=== PATIENT | male | born 1960 | race Caucasian/White ===

== ENCOUNTER 2019-05-18 11:54 | Emergency (ER) | payer MEDICAID ==
[~2019-05-18] VITALS: Ht 172.7 cm; Wt 81.7 kg
[~2019-05-18 11:54] MED LIST: ALBU90OI INH; CARB200 PO; CEPH500 PO; CIPR500 PO; Cleocin HCl300 MG PO; DIPH50 PO; DOXE10 PO; FLUSAL2505 INH; Golytely Packe1 EACH PO; HEMOTC PR; HYDCHL25 PO; HYDR1TAB94 PO; IBUP600 PO; ILOTYCIN1 GM; Keflex500 MG PO; LISHYD2025 PO; LISI20 PO; METPRE4DP PO; METR250 PO; NITR.4SL SL; Norco 10-325 T1 EACH PO; Norco 5-325 Ta1 EACH PO; Pepcid40 MG PO; TRAM50 PO; VARE1 PO; ZESTORETIC 20-121 EA PO; ZESTRIL40 MG PO; [UNRECOGNIZED DRUG - OTHER]
== END 2019-05-18 13:47 | disposition home or self-care (01) ==
LOC: ER 11:54
DX: M72.2 Plantar fascial fibromatosis (principal); J44.9 Chronic obstructive pulmonary disease, unspecified; I10 Essential (primary) hypertension; F17.200 Nicotine dependence, unspecified, uncomplicated; K74.60 Unspecified cirrhosis of liver; Z88.0 Allergy status to penicillin
CPT/HCPCS: 73630; 99283-25

== ENCOUNTER 2019-07-05 09:16 | Emergency (ER) | payer OTHER ==
[~2019-07-05] VITALS: Ht 172.7 cm; Wt 86.2 kg
[2019-07-05] MEDS ORDERED: IRBESARTAN300 MG PO (09:33)
[2019-07-05] MEDS ORDERED: AMLODIPINE BESY10 MG (09:33)
== END 2019-07-05 10:24 | disposition home or self-care (01) ==
LOC: ER 09:16
DX: R04.0 Epistaxis (principal); I10 Essential (primary) hypertension; F17.210 Nicotine dependence, cigarettes, uncomplicated; Z79.899 Other long term (current) drug therapy
CPT/HCPCS: 30901; 99283-25

== ENCOUNTER 2019-07-12 14:53 | Emergency (ER) | payer OTHER ==
[~2019-07-12] VITALS: Ht 172.7 cm; Wt 88.5 kg
[~2019-07-12 14:53] MED LIST changes: +AMLODIPINE BESY10 MG; +IRBESARTAN300 MG PO
[2019-07-12] MEDS ORDERED: ANORO ELLIPTA1 EACH INH (15:02)
[2019-07-12] MEDS ORDERED: OMEPRAZOLE MAGN20 M1 PO (15:02)
[2019-07-12] MEDS ORDERED: Ventolin/Prove6.7 GM INH (15:02)
[2019-07-12] MEDS ORDERED: CEPH500 PO (15:04)
== END 2019-07-12 15:08 | disposition home or self-care (01) ==
LOC: ER 14:53
DX: L03.011 Cellulitis of right finger (principal); I10 Essential (primary) hypertension; F17.210 Nicotine dependence, cigarettes, uncomplicated; Z88.0 Allergy status to penicillin; Z79.899 Other long term (current) drug therapy
CPT/HCPCS: 99283

== ENCOUNTER → 2019-08-01 | Outpatient (CLI) | payer OTHER ==
[~2019-08-01] MED LIST changes: +ANORO ELLIPTA1 EACH INH; +OMEPRAZOLE MAGN20 M1 PO; +Ventolin/Prove6.7 GM INH
[2019-08-03 14:23] LABS: Stool Occult Bld Immuno 1 Negative (NEGATIVE)
== END | disposition home or self-care (01) ==
LOC: LAB 14:08 → LAB SHORT 14:08 → LAB FUT 06-11 13:30
PROVIDERS: Physician Assistant
DX: D64.9 Anemia, unspecified (principal)
CPT/HCPCS: G0328

== ENCOUNTER 2020-03-11 11:42 | Emergency (ER) | payer OTHER ==
[~2020-03-11] VITALS: Ht 172.7 cm; Wt 88.5 kg
[~2020-03-11 11:42] MED LIST changes: +AMLODIPINE BESY10 MG PO; +Avapro300 MG PO; +CHLO25B PO; +OMEP20ER PO; +Vibramycin100 MG PO; +ZESTORETIC 20-1 EACH PO
[2020-03-11] MEDS ORDERED: Cephalexin500 M1 PO (12:11)
== END 2020-03-11 12:17 | disposition home or self-care (01) ==
LOC: ER 11:42
DX: L03.115 Cellulitis of right lower limb (principal); I10 Essential (primary) hypertension; J44.9 Chronic obstructive pulmonary disease, unspecified; K74.60 Unspecified cirrhosis of liver; F17.210 Nicotine dependence, cigarettes, uncomplicated
CPT/HCPCS: 99283

== ENCOUNTER 2020-03-13 10:33 | Inpatient (IN) | payer OTHER ==
[~2020-03-13] VITALS: Ht 172.7 cm; Wt 88.5 kg
[~2020-03-13 10:33] MED LIST changes: +Cephalexin500 M1 PO
[2020-03-13 11:38] LABS: BASOPHILS ABSOLUTE AUTO 0.02 K/mm3 (0.00-0.23); BASOPHILS PERCENT AUTO 0 % (0-2); EOSINOPHILS ABSOLUTE AUTO 0.06 K/mm3 (0.00-0.68); EOSINOPHILS PERCENT AUTO 1 % (0-6); Hematocrit 31.5 % (37.0-53.0); Hemoglobin 10.2 g/dL (13.5-17.5); IMMATURE GRAN ABSOLUTE AUTO 0.04 K/mm3 (0.00-0.10); IMMATURE GRAN PERCENT AUTO 1 % (0-1); LYMPHOCYTES ABSOLUTE AUTO 0.52 K/mm3 (0.84-5.20); LYMPHOCYTES PERCENT AUTO 8 % (21-46); MONOCYTES PERCENT AUTO 11 % (4-13); Mean Corpuscular HGB 27.5 pg (26.0-34.0); Mean Corpuscular HGB Conc 32.4 g/dL (31.5-36.5); Mean Corpuscular Volume 85 fL (80-100); NEUTROPHILS ABSOLUTE AUTO 4.88 K/mm3 (1.96-9.15); NEUTROPHILS PERCENT AUTO 78 % (41-73); NRBC ABSOLUTE 0.02 K/mm3 (0.00-0.02); NRBC Auto 0.3 /100 WBC (0.0-0.2); Platelet Count 59 K/mm3 (150-400); RDW Coefficient Variation 17.3 % (11.7-14.2); RDW Standard Deviation 53.9 fL (35.1-46.3); Red Blood Cell Count 3.71 M/mm3 (4.30-5.90); White Blood Cell Count 6.22 K/mm3 (4.00-11.30)
[2020-03-13 11:49] LABS: Mean Platelet Volume 11.3 fL (9.1-12.4)
[2020-03-13 11:56] LABS: Albumin, Blood 2.5 g/dL (3.4-5.0); Albumin/Globulin Ratio 0.6 (0.8-1.8); Bilirubin, Total 0.8 mg/dL (0.1-1.0); Calcium, Blood 7.9 mg/dL (8.5-10.1); Creatinine, Blood 4.1 mg/dL (0.60-1.20); Globulin, Blood 4.5 g/dL (2.2-4.0); Potassium, Blood 3.1 mmol/L (3.5-5.5)
[2020-03-13 12:44] LABS: Source, Urine Clean Catch
[2020-03-13 12:56] LABS: Appearance, Urine Clear (Clear); Bilirubin, Urine Neg (Neg); Blood, Urine 5+ (Neg); Color, Urine Yellow (P-Yellow); Glucose Qualitative, Urine Neg (Neg); Ketones, Urine Neg (Neg); Leukocyte Esterase, Urine 1+ (Neg); Nitrite, Urine Neg (Neg); Protein, Urine 1+ (Neg); Specific Gravity, Urine 1.015 (1.003-1.022); Urobilinogen, Urine 1+ (Normal)
[2020-03-13] MEDS ORDERED: Ventolin/Prove6.7 GM INH (12:59)
[2020-03-13] MEDS ORDERED: ONDA4 PO (12:59)
[2020-03-13] MEDS ORDERED: TRELEGY ELLIPT1 EACH INH (12:59)
[2020-03-13] MEDS ORDERED: CHLO25B PO (13:00)
[2020-03-13] MEDS ORDERED: PRAZ2 PO (13:00)
[2020-03-13] MEDS ORDERED: DOXE50 PO (13:00)
[2020-03-13] MEDS ORDERED: Nadolol20 MG PO (13:01)
[2020-03-13] MEDS ORDERED: STEGLATRO5 MG PO (13:01)
[2020-03-13] MEDS ORDERED: OMEPRAZOLE MAGN20 M1 PO (13:01)
[2020-03-13 13:02] LABS: Red Blood Cells, Urine TNTC /hpf (0-2)
[2020-03-13 13:03] LABS: Bacteria Few /hpf; Granular Casts 0-2 /lpf (0); Renal Epithelial Rare /hpf (0-Rare); Squamous Epithelial Cells Rare /hpf (Few)
[2020-03-13 13:59] LABS: D-Dimer, Quantitative 3.56 mg/L FEU (0.00-0.52); International Normalized Ratio 1.17; Prothrombin Time Results 12.4 Sec (9.7-11.5)
[2020-03-13 16:33] LABS: U Amphetamine Screen Not Detected; U Barbituate Screen Not Detected; U Benzodiazapine Screen Not Detected; U Buprenorphine Screen Not Detected; U Cannabinoids Screen Not Detected; U Cocaine Screen Not Detected; U Methadone Screen Not Detected; U Methamphetamine Screen Not Detected; U Opiates Screen Not Detected; U Oxycodone Screen Not Detected; U Phencyclidine Screen Not Detected; U Propoxyphene Screen Not Detected
[2020-03-13] MEDS ORDERED: CEPH500 PO (17:49)
--- NOTE | 2020-03-13 23:28 | NUR ---
1999 PT RESTING COMFORTABLY IN BED; THIS NURSE PLACED TWO PILLOWS AND ELEVATED RLE; RLE CALF SWOLLEN AND TENDER TO TOUCH WITH REDNESS NOTED IN CALF REGION; HAPPY AND COOPERATIVE; PT VOICED HE NOT HAD ANY ETOH 11 MONTHS AND CURRENTLY WORKS AND RESIDES AT THE [address]
--- NOTE | 2020-03-14 03:24 | NUR ---
SHIFT SUMMARY: 59 Y/O MALE RESTED COMFORTABLY IN BED ALL SHIFT WITH RLE ELEVATED TWO PILLOWS; PTS RLE REDDENED LOWER CALF ON POSTERIOR ASPECT WITH SKIN TIGHT AROUND ENTIRE CIRCUMFERENCE; PT C/O RLE PAIN RATED 7/10 WITH PERCOCET X 1 GIVEN WITH RELIEF FELT; DENIES NAUSEA; ALERT AND ORIENTED X 4; BED LOW POSITION WITH CALL LIGHT AT SIDE.
[2020-03-14 05:10] LABS: Hematocrit 27.6 % (37.0-53.0); Hemoglobin 8.9 g/dL (13.5-17.5); Mean Corpuscular HGB 27.9 pg (26.0-34.0); Mean Corpuscular HGB Conc 32.2 g/dL (31.5-36.5); Mean Corpuscular Volume 87 fL (80-100); Mean Platelet Volume 10.8 fL (9.1-12.4); Platelet Count 52 K/mm3 (150-400); RDW Coefficient Variation 17.4 % (11.7-14.2); RDW Standard Deviation 55.8 fL (35.1-46.3); Red Blood Cell Count 3.19 M/mm3 (4.30-5.90); White Blood Cell Count 3.98 K/mm3 (4.00-11.30)
[2020-03-14 05:35] LABS: Albumin, Blood 2.2 g/dL (3.4-5.0); Anion Gap 8 mmol/L (6-16); Blood Urea Nitrogen 64 mg/dL (8-24); Bun/Creatinine Ratio 18.2 (12.0-20.0); CO2, Blood 22 mmol/L (21-32); Calcium, Blood 7.7 mg/dL (8.5-10.1); Chloride, Blood 109 mmol/L (98-108); Creatinine, Blood 3.51 mg/dL (0.60-1.20); Glomerular Filtration Rate 19 (60-); Glucose, Blood 152 mg/dL (70-99); Phosphorus, Blood 4.5 mg/dL (2.5-4.9); Potassium, Blood 3.6 mmol/L (3.5-5.5); Sodium, Blood 139 mmol/L (136-145); Vancomycin, Random 16.4 ug/mL
[2020-03-14 17:09] LABS: ANA DIRECT Negative (Negative)
--- NOTE | 2020-03-14 17:14 | NUR ---
CALLED DR MENDOSA AFTER SPEAKING WITH THE PHARMACIST. PT HAS A LOW PLATELET COUNT OF 52, BUT IS RECIEVING HEPARIN FOR DVT PROPHYLAXIS. RECIEVED ORDER FOR DC HEPARIN AT THIS TIME. NO CURRENT ORDER FOR DVT PROPHYLAXIS THE PT HAS SEVERE CELLULITIS IN THE RLE.
--- NOTE | 2020-03-14 18:30 | NUR ---
SHIFT SUMMARY- PT ALERT AND ORIENTED, INDEPENDENT IN THE ROOM. DR RODRIGUEZ CAME TO SEE HIM AND REQUESTED STAFF TO REDUCE THE IVF RATE TO 75ML/HR. ORDER CHANGED IN ORDER MANAGEMENT TO REFLECT THIS. PT MEDICATED FOR PAIN EARLY INTHE SHIFT. CAME TO SEE THE PT AND STATED HE CAN GO OUT TO SMOKE. PT HAS BEEN OUT THREE TIMES TODAY. THE LAST AT 1800. PT IS CURRENTLY SL HE HAS NOT YET RETURNED TO THE ROOM. NO S&S OF DISTRESS NOTED T/O THE DAY. PLATELET COUNT IS LOW SO HEPARIN WAS DC'D. WILL PASS ALL ON INBEDSIDE REPORT TO NIGHT RN.
--- NOTE | 2020-03-14 20:44 | NUR ---
PTS RFA IV SQ, NURSING ATTEMPTED X 2 WITHOUT SUCCESS; PT IS EATING AND DRINKING FLUIDS WELL; DR SIERRA NOTIFIED WITH ORDERS TO DISCONTINUE IV AND TO RESTART SALINE LOCK IN AM IF ANTIBIOTICS ARE ORDERED TO CONTINUE.
--- NOTE | 2020-03-15 03:53 | NUR ---
SHIFT SUMMARY: 59 Y/O RESTED COMFORTABLY ALL SHIFT; DENIES PAIN OR NAUSEA; PTS RLE ELEVATED TWO PILLOWS WITH REDNESS AND NO DRAINAGE NOTED; ALERT AND ORIENTED X 4; PT DRINKING PLENTY OF FLUIDS; PTS IV WENT SQ LAST NIGHT WITH STAFF UNABLE TO RESTART IV AND MD WAS NOTIFIED WITH ORDERS TO LEAVE OUT AT THIS TIME TILL AM ATTENDING ULYSSES; GAIT SLOW AND STEADY; BED LOW POSITION WITH CALL LIGHT AT SIDE.
[2020-03-15 04:56] LABS: BASOPHILS ABSOLUTE AUTO 0.01 K/mm3 (0.00-0.23); BASOPHILS PERCENT AUTO 0 % (0-2); EOSINOPHILS ABSOLUTE AUTO 0.08 K/mm3 (0.00-0.68); EOSINOPHILS PERCENT AUTO 3 % (0-6); Hemoglobin 8.6 g/dL (13.5-17.5); IMMATURE GRAN ABSOLUTE AUTO 0.01 K/mm3 (0.00-0.10); IMMATURE GRAN PERCENT AUTO 0 % (0-1); LYMPHOCYTES ABSOLUTE AUTO 0.44 K/mm3 (0.84-5.20); LYMPHOCYTES PERCENT AUTO 16 % (21-46); MONOCYTES PERCENT AUTO 14 % (4-13); Mean Corpuscular HGB 27.6 pg (26.0-34.0); Mean Corpuscular HGB Conc 31.9 g/dL (31.5-36.5); Mean Corpuscular Volume 87 fL (80-100); Mean Platelet Volume 10.5 fL (9.1-12.4); NEUTROPHILS ABSOLUTE AUTO 1.84 K/mm3 (1.96-9.15); NEUTROPHILS PERCENT AUTO 66 % (41-73); Platelet Count 52 K/mm3 (150-400); RDW Coefficient Variation 17.5 % (11.7-14.2); RDW Standard Deviation 56.2 fL (35.1-46.3); Red Blood Cell Count 3.12 M/mm3 (4.30-5.90); White Blood Cell Count 2.78 K/mm3 (4.00-11.30)
[2020-03-15 05:18] LABS: Albumin, Blood 2.2 g/dL (3.4-5.0); Anion Gap 7 mmol/L (6-16); Blood Urea Nitrogen 52 mg/dL (8-24); Bun/Creatinine Ratio 18.7 (12.0-20.0); CO2, Blood 21 mmol/L (21-32); Calcium, Blood 7.8 mg/dL (8.5-10.1); Chloride, Blood 111 mmol/L (98-108); Creatinine, Blood 2.78 mg/dL (0.60-1.20); Glomerular Filtration Rate 25 (60-); Glucose, Blood 131 mg/dL (70-99); Phosphorus, Blood 3.8 mg/dL (2.5-4.9); Potassium, Blood 3.5 mmol/L (3.5-5.5); Sodium, Blood 139 mmol/L (136-145); Vancomycin, Random 21.6 ug/mL
[2020-03-15 09:07] LABS: COMPLEMENT C3, SERUM 80 mg/dL (82-167); COMPLEMENT C4, SERUM 8 mg/dL (12-38)
[2020-03-15 12:24] LABS: Bilirubin, Urine Neg (Neg); Blood, Urine 4+ (Neg); Glucose Qualitative, Urine Neg (Neg); Ketones, Urine Neg (Neg); Leukocyte Esterase, Urine Neg (Neg); Nitrite, Urine Neg (Neg); Protein, Urine Neg (Neg); Specific Gravity, Urine 1.015 (1.003-1.022); Urobilinogen, Urine NORM (Normal)
[2020-03-15 12:29] LABS: Appearance, Urine Clear (Clear); Color, Urine Yellow (P-Yellow)
[2020-03-15 12:31] LABS: White Blood Cells, Urine 0-2 /hpf (0-5)
[2020-03-15 12:33] LABS: Bacteria Few /hpf; Squamous Epithelial Cells Not Seen /hpf (Few)
[2020-03-15 16:47] LABS: Vancomycin, Random 17.6 ug/mL
--- NOTE | 2020-03-15 16:55 | NUR ---
CALLED DR LEWIS- PT BG 100 THIS EVENING / HELD FOR CLINICAL JUDGEMENT DR RODRIGUEZ OK TO HOLD.
--- NOTE | 2020-03-15 17:13 | NUR ---
SHIFT SUMMARY- PT ALERT, ORIENTED AND INDEPENDENT. PT HAS BEEN UP AND WALKING IN THE HALLS AND OUTSIDE. PT GOES OUT TO SMOKE FREQUENTLY. PT HAS DENIED THE NEED FOR PAIN MEDICATION T/O THE DAY. PT LIKES PEPSI WITHOUT ICE OCCASSIONALLY AND WILL SIP ON ONE ALL DAY LONG. PT LIKES HOT COFFEE WITH 1 SUGAR. POSSIBLE DC EARLY TOMORROW IF HE CONTINUES TO IMPROVE. DR SPOKE TO HIM ABOUT THE NEED TO STAY A LITTLE LONGER ( PT WANTS TO GO HOME) PT AGREED TO WAIT FOR DR ORDER TO GO HOME. PT HAS BEEN PLEASENT AND APPROPRIATE T/O THE DAY. NO S&S OF DISTRESS ON ROOM AIR. NO VISITORS TODAY.
[2020-03-16 05:21] LABS: Vancomycin, Random 13.4 ug/mL
--- NOTE | 2020-03-16 07:20 | NUR ---
IT BUSINESS PROCESS ARCHITECT SUMMARY PT A/O X4. PT SLEPT ALL NIGHT. VSS. NO ACUTE CHANGES. AMBULATED INDEPENDENTLY. REPORT GIVEN TO ONCOMING RN. CALL LIGHT WITHIN REACH.
[2020-03-16] MEDS ORDERED: VISBIOME PROBIOTIC PO (10:12)
[2020-03-16] MEDS ORDERED: DOXY100 PO (10:13)
--- NOTE | 2020-03-16 14:30 | NUR ---
PATIENT D/C'D TO HOME. RX MEDICATIONS FAXED TO [facility] [address]. SCRIPT FOR BLOOD DRAW ON 03/19 GIVEN TO PATIENT. DC INSTRUCTIONS AND EDUCATION DISCUSSED WITH PATIENT AND COPY PROVIDED. PATIENT DENIES ANY FURTHER QUESTIONS OR CONCERNS.
[2020-03-18 14:10] LABS: ANA DIRECT Negative (Negative); ANTIMYELOPEROXIDASE (MPO) ABS <9.0 U/mL (0.0-9.0); ANTIPROTEINASE 3 (PR-3) ABS <3.5 U/mL (0.0-3.5); ATYPICAL PANCA <1:20 titer (Neg:<1:20); CYTOPLASMIC (C-ANCA) <1:20 titer (Neg:<1:20); PERINUCLEAR (P-ANCA) <1:20 titer (Neg:<1:20)
== END 2020-03-16 14:33 | disposition home or self-care (01) | DRG 683 ==
LOC: ER 10:33 → MEDS 15:45 → ENPENDDIS 03-16 09:54 → MEDS 03-16 14:33
PROVIDERS: Internal Medicine; Nurse Practitioner Acute Care; Physician Assistant; ADMIT Internal Medicine
DX: N17.9 Acute kidney failure, unspecified (principal); L03.115 Cellulitis of right lower limb; J44.9 Chronic obstructive pulmonary disease, unspecified; B18.2 Chronic viral hepatitis C; F10.20 Alcohol dependence, uncomplicated; E87.6 Hypokalemia; D69.6 Thrombocytopenia, unspecified; I10 Essential (primary) hypertension; E11.9 Type 2 diabetes mellitus without complications; K21.9 Gastro-esophageal reflux disease without esophagitis; F32.9 Major depressive disorder, single episode, unspecified; K74.60 Unspecified cirrhosis of liver; Z59.0 Homelessness; F17.210 Nicotine dependence, cigarettes, uncomplicated; Z93.3 Colostomy status; D64.9 Anemia, unspecified; Z86.14 Personal history of Methicillin resistant Staphylococcus aureus infection
CPT/HCPCS: 36415; 71045; 73700; 76770; 80053; 80069; 80202; 81001; 82550; 82565; 83520; 83605; 83615; 83690; 83735; 85025; 85027; 85379; 85384; 85610; 86038; 86160; 86256; 87040; 87086; 93971; 94640; 94760; 96365; 96366; 99284-25; A9270; J1644; J3370; J7030; J7050

== ENCOUNTER 2020-03-30 00:20 | Day surgery (SDC) | payer OTHER ==
[~2020-03-30 00:20] MED LIST changes: +DOXE50 PO; +DOXY100 PO; +Nadolol20 MG PO; +ONDA4 PO; +PRAZ2 PO; +STEGLATRO5 MG PO; +TRELEGY ELLIPT1 EACH INH; +VISBIOME PROBIOTIC PO
== END 2020-03-30 23:03 | disposition home or self-care (01) ==
LOC: WOUND 00:20
DX: E11.622 Type 2 diabetes mellitus with other skin ulcer (principal); L97.819 Non-pressure chronic ulcer of other part of right lower leg with unspecified severity; E11.628 Type 2 diabetes mellitus with other skin complications; L03.115 Cellulitis of right lower limb; E11.52 Type 2 diabetes mellitus with diabetic peripheral angiopathy with gangrene; I96 Gangrene, not elsewhere classified; E11.59 Type 2 diabetes mellitus with other circulatory complications; I87.2 Venous insufficiency (chronic) (peripheral); J44.9 Chronic obstructive pulmonary disease, unspecified; I10 Essential (primary) hypertension; K74.60 Unspecified cirrhosis of liver; F17.210 Nicotine dependence, cigarettes, uncomplicated; D64.9 Anemia, unspecified; Z79.899 Other long term (current) drug therapy; Z88.0 Allergy status to penicillin; Z20.828 Contact with and (suspected) exposure to other viral communicable diseases
CPT/HCPCS: G0463

== ENCOUNTER 2020-05-13 11:58 | Emergency (ER) | payer OTHER ==
[~2020-05-13] VITALS: Ht 172.7 cm; Wt 88.5 kg
[2020-05-13] MEDS ORDERED: Cleocin HCl300 MG PO (13:19)
== END 2020-05-13 13:33 | disposition home or self-care (01) ==
LOC: ER 11:58
DX: L02.416 Cutaneous abscess of left lower limb (principal); I10 Essential (primary) hypertension; F17.210 Nicotine dependence, cigarettes, uncomplicated; Z88.0 Allergy status to penicillin; Z79.899 Other long term (current) drug therapy
CPT/HCPCS: 99283

== ENCOUNTER 2020-09-10 12:36 | Emergency (ER) | payer OTHER ==
[~2020-09-10] VITALS: Ht 172.7 cm; Wt 88.5 kg
== END 2020-09-10 14:37 | disposition home or self-care (01) ==
LOC: ER 12:36
DX: M79.672 Pain in left foot (principal); I10 Essential (primary) hypertension; J44.9 Chronic obstructive pulmonary disease, unspecified; F17.210 Nicotine dependence, cigarettes, uncomplicated; Z88.0 Allergy status to penicillin; Z79.899 Other long term (current) drug therapy
CPT/HCPCS: 73610; 73630; 99283-25; A9270

== ENCOUNTER 2022-01-05 16:26 | Observation (INO) | payer OTHER ==
[~2022-01-05] VITALS: Ht 172.7 cm; Wt 80.0 kg
[2022-01-05 18:11] LABS: BASOPHILS ABSOLUTE AUTO 0.01 K/mm3 (0.00-0.23); BASOPHILS PERCENT AUTO 0 % (0-2); EOSINOPHILS PERCENT AUTO 0 % (0-6); Hematocrit 29.3 % (37.0-53.0); Hemoglobin 9.8 g/dL (13.5-17.5); IMMATURE GRAN ABSOLUTE AUTO 0.03 K/mm3 (0.00-0.10); IMMATURE GRAN PERCENT AUTO 1 % (0-1); LYMPHOCYTES ABSOLUTE AUTO 0.43 K/mm3 (0.84-5.20); LYMPHOCYTES PERCENT AUTO 7 % (21-46); MONOCYTES ABSOLUTE AUTO 0.42 K/mm3 (0.16-1.47); MONOCYTES PERCENT AUTO 6 % (4-13); Mean Corpuscular HGB 29.1 pg (26.0-34.0); Mean Corpuscular HGB Conc 33.4 g/dL (31.5-36.5); Mean Corpuscular Volume 87 fL (80-100); Mean Platelet Volume 10.6 fL (9.1-12.4); NEUTROPHILS ABSOLUTE AUTO 5.65 K/mm3 (1.96-9.15); NEUTROPHILS PERCENT AUTO 86 % (41-73); Platelet Count 95 K/mm3 (150-400); RDW Coefficient Variation 14.3 % (11.7-14.2); RDW Standard Deviation 45.3 fL (35.1-46.3); Red Blood Cell Count 3.37 M/mm3 (4.30-5.90); White Blood Cell Count 6.54 K/mm3 (4.00-11.30)
[2022-01-05 18:28] LABS: Albumin, Blood 3.5 g/dL (3.4-5.0); Albumin/Globulin Ratio 0.9 (0.8-1.8); Bilirubin, Total 0.5 mg/dL (0.1-1.0); Bun/Creatinine Ratio 19.9 (12.0-20.0); Calcium, Blood 8.9 mg/dL (8.5-10.1); Creatinine, Blood 1.61 mg/dL (0.60-1.20); Globulin, Blood 4.1 g/dL (2.2-4.0); Potassium, Blood 4.3 mmol/L (3.5-5.5); Total Protein, Blood 7.6 g/dL (6.4-8.2)
[2022-01-06] MEDS ORDERED: CHLO25B PO (01:29)
[2022-01-06] MEDS ORDERED: Prednisone10 MG PO (01:31)
[2022-01-06] MEDS ORDERED: AMLO10 PO (01:32)
[2022-01-06] MEDS ORDERED: MUPIROCIN15 GM (01:33)
[2022-01-06 01:46] LABS: International Normalized Ratio 1.22; Prothrombin Time Results 12.6 Sec (9.7-11.5)
[2022-01-06 01:51] LABS: Hematocrit 29.6 % (37.0-53.0); Hemoglobin 9.9 g/dL (13.5-17.5); Mean Corpuscular HGB Conc 33.4 g/dL (31.5-36.5); Mean Corpuscular Volume 87 fL (80-100); Platelet Count 84 K/mm3 (150-400); RDW Coefficient Variation 14.1 % (11.7-14.2); Red Blood Cell Count 3.41 M/mm3 (4.30-5.90); White Blood Cell Count 6.32 K/mm3 (4.00-11.30)
--- NOTE | 2022-01-06 03:29 | NUR ---
SUMMARY PT ARRIVED TO FLOOR IN NO DISTRESS. PT DENIES N/V. PT VOIDING WELL. PT DENIES ANY PAIN. PT CURRENTLY SLEEPING IN NO DISTRESS. CALL LIGHT IN REACH.
[2022-01-06 09:03] LABS: BASOPHILS ABSOLUTE AUTO 0.04 K/mm3 (0.00-0.23); BASOPHILS PERCENT AUTO 1 % (0-2); EOSINOPHILS ABSOLUTE AUTO 0.08 K/mm3 (0.00-0.68); EOSINOPHILS PERCENT AUTO 2 % (0-6); Hematocrit 30.5 % (37.0-53.0); Hemoglobin 9.8 g/dL (13.5-17.5); IMMATURE GRAN ABSOLUTE AUTO 0.02 K/mm3 (0.00-0.10); IMMATURE GRAN PERCENT AUTO 0 % (0-1); LYMPHOCYTES ABSOLUTE AUTO 0.78 K/mm3 (0.84-5.20); LYMPHOCYTES PERCENT AUTO 17 % (21-46); MONOCYTES ABSOLUTE AUTO 0.45 K/mm3 (0.16-1.47); MONOCYTES PERCENT AUTO 10 % (4-13); Mean Corpuscular HGB 28.2 pg (26.0-34.0); Mean Corpuscular HGB Conc 32.1 g/dL (31.5-36.5); Mean Corpuscular Volume 88 fL (80-100); Mean Platelet Volume 10.4 fL (9.1-12.4); NEUTROPHILS ABSOLUTE AUTO 3.37 K/mm3 (1.96-9.15); NEUTROPHILS PERCENT AUTO 71 % (41-73); Platelet Count 88 K/mm3 (150-400); RDW Coefficient Variation 14.1 % (11.7-14.2); RDW Standard Deviation 45.3 fL (35.1-46.3); Red Blood Cell Count 3.47 M/mm3 (4.30-5.90); White Blood Cell Count 4.74 K/mm3 (4.00-11.30)
[2022-01-06 09:24] LABS: Albumin, Blood 3.1 g/dL (3.4-5.0); Albumin/Globulin Ratio 0.8 (0.8-1.8); Bilirubin, Total 0.6 mg/dL (0.1-1.0); Bun/Creatinine Ratio 20.5 (12.0-20.0); Calcium, Blood 8.5 mg/dL (8.5-10.1); Creatinine, Blood 1.32 mg/dL (0.60-1.20); Potassium, Blood 3.7 mmol/L (3.5-5.5); Total Protein, Blood 7.1 g/dL (6.4-8.2)
[2022-01-06 12:06] LABS: Hemoglobin 10.3 g/dL (13.5-17.5)
[2022-01-06 12:31] LABS: Albumin, Blood 3.2 g/dL (3.4-5.0); Albumin/Globulin Ratio 0.8 (0.8-1.8); Bilirubin, Total 0.5 mg/dL (0.1-1.0); Bun/Creatinine Ratio 20.1 (12.0-20.0); Calcium, Blood 8.7 mg/dL (8.5-10.1); Creatinine, Blood 1.34 mg/dL (0.60-1.20); Globulin, Blood 4.2 g/dL (2.2-4.0); Potassium, Blood 3.8 mmol/L (3.5-5.5); Total Protein, Blood 7.4 g/dL (6.4-8.2)
--- NOTE | 2022-01-06 15:28 | NUR ---
Pt. is awake in bed and welcomes my visit. Pt. is pleasant. Pts. friend is present. Establish rapport based on his involvement in local recovery ministries. Pt. displays evidence of engagement and hope. Pt. is waiting for an endoscopy. Prayed with Pt. Pt. verbalized gratitude for the spiritual care visit.
--- NOTE | 2022-01-06 17:34 | NUR ---
DR MORGAN AWARE THAT THE PHARMACY DOES NOT HAVE SANDOSTATIN AVAILABLE. NO NEW ORDERS RECEIVED.
--- NOTE | 2022-01-06 17:39 | NUR ---
SHIFT SUMMARY PT A&OX4, VSS/RA, RAMYA PO-DENIES N&V, VOIDING WELL, AMB INDEPENDENTLY IN ROOM/ BRP, DENIES PAIN. IV PROTONIX INFUSING PER ORDER 10 MLS/HR, SANDOSTATIN NO LONGER INFUSING UNAVAILABLE FROM PHARMACY-DR CATHY RODRIGUEZ. PLAN FOR PT TO RECEIVE EGD TOMORROW - PT TO BE NPO 2 HOURS PRIOR. WILL REPORT TO ONCOMING NOC RN.
[2022-01-06 19:48] LABS: Hematocrit 30.4 % (37.0-53.0); Hemoglobin 9.8 g/dL (13.5-17.5)
[2022-01-07 01:02] LABS: Hematocrit 29.2 % (37.0-53.0); Hemoglobin 9.7 g/dL (13.5-17.5); Mean Corpuscular HGB Conc 33.2 g/dL (31.5-36.5); Mean Corpuscular Volume 87 fL (80-100); Mean Platelet Volume 10.2 fL (9.1-12.4); Platelet Count 86 K/mm3 (150-400); RDW Coefficient Variation 14.2 % (11.7-14.2); RDW Standard Deviation 45.4 fL (35.1-46.3); Red Blood Cell Count 3.34 M/mm3 (4.30-5.90); White Blood Cell Count 3.93 K/mm3 (4.00-11.30)
[2022-01-07 01:24] LABS: Albumin, Blood 3.1 g/dL (3.4-5.0); Albumin/Globulin Ratio 0.8 (0.8-1.8); Bilirubin, Total 0.6 mg/dL (0.1-1.0); Calcium, Blood 8.3 mg/dL (8.5-10.1); Creatinine, Blood 1.41 mg/dL (0.60-1.20); Globulin, Blood 3.8 g/dL (2.2-4.0); Percent Saturation 11.8 % (20.0-50.0); Total Protein, Blood 6.9 g/dL (6.4-8.2)
--- NOTE | 2022-01-07 04:42 | NUR ---
SANDOSTATIN: PHARMACY WAS ABLE TO MAKE 1 MORE INFUSIN OF SANDOSTATIN (AFTER PREVIOUSLY BEING OUT OF MED-DR CATHY RODRIGUEZ PER REP). MED HUNG BY DAY RN, RAN UNTIL COMPLETED. PHARMACY CONTACTED FOR NEW BAG, PER PHARMACY, THERE IS NO MORE OF THIS MED AVAILABE WITHIN THE HOSPITAL, AND NO EXPECTED DELIVERY OF MED TODAY. PER PHARMACIST, THE LAST BAG USED THE REMAINING QUANTITY IN THE HOSPITAL.
--- NOTE | 2022-01-07 06:39 | NUR ---
PT VSS T/O NIGHT. PT DENIED N/V, NO BM REPORTED. PROTINIX GTT CONT T/O NIGHT. SANDOSTATIN GTT COMPLETED; NO ADDITIONAL MED AVAILABLE PER PHARMACY (SEE PREVIOUS NOTE). PT NPO X SIPS ANC ICE CHIPS POST MIDNIGHT FOR PLAN FOR EGD [id number] TODAY. PLAN FOR PT TO BE NPO AT 1200 TODAY.
--- NOTE | 2022-01-07 10:45 | NUR ---
PATIENT JUST LEFT FOR THE OR.
--- NOTE | 2022-01-07 11:43 | NUR ---
01/07/22 1143 Pb Coe HISTORY, CHART, MEDICATIONS AND ALLERGIES REVIEWED BEFORE START OF PROCEDURE. PATIENT CONFIRMS NPO STATUS AND AGREES WITH SCHEDULED PROCEDURE. 3-LEAD EKG REVIEWED WITH PHYSICIAN PRIOR TO START OF PROCEDURE. MONITOR INTACT WITH CONTINUOUS PULSE OXIMETRY,CAPNOGRAPHY, 3-LEAD EKG, INTERMITTENT BP. SUPPLEMENTAL O2 TO BE TITRATED THROUGHOUT PROCEDURE TO MAINTAIN O2 SATURATION ABOVE 90%. PATIENT DETERMINED TO BE ASA APPROPRIATE FOR PROPOFOL SEDATION PRIOR TO START OF PROCEDURE BY DR. MORGAN.
[2022-01-07] MEDS ORDERED: OMEP20ER PO (13:27)
--- NOTE | 2022-01-07 13:42 | NUR ---
DISCHARGE NOTE: PATIENT AND PATIENTS SON WERE EDUCATED ON DISCHARGE INSTRUCTIONS. BOTH VERBALIZED UNDERSTANDING OF INSTRUCTIONS. HIS NEW PERSCRIPTION WAS FAXED TO HIS PREFERRED PHARMACY WHICH WAS [facility]. IV WAS TAKEN OUT AND WNL. PATIENT IS TOLERATING REGULAR FOOD AND IS DRINKING FLUIDS. HE IS INDEP. IN THE ROOM AND IS ALREADY DRESSED WITH HIS PERSONAL ITEMS GATHERED. DENIES NAUSEA/VOMITING. HE IS VOIDING AND HAVING BM'S WITHOUT NOTICABLE BLOOD IN STOOL. PATIENT REFUSED THE WHEELCHAIR AND IS WALKING OUT WITH HIS SON TO HIS CAR TO BE TAKEN HOME.
== END 2022-01-07 13:47 | disposition home or self-care (01) ==
LOC: ER 16:26 → SURS 16:27
PROVIDERS: Internal Medicine; Internal Medicine Gastroenterology; Physician Assistant; Student in an Organized Health Care Education/Training Program; ADMIT Internal Medicine
PROC: 0DJ08ZZ Inspection of Upper Intestinal Tract, Via Natural or Artificial Opening Endoscopic (ICD-10-PCS; principal; 2022-01-07 14:00)
DX: K74.60 Unspecified cirrhosis of liver (principal); I85.11 Secondary esophageal varices with bleeding; B18.2 Chronic viral hepatitis C; D64.9 Anemia, unspecified; K76.6 Portal hypertension; K31.89 Other diseases of stomach and duodenum; K21.9 Gastro-esophageal reflux disease without esophagitis; J44.9 Chronic obstructive pulmonary disease, unspecified; F32.A Depression, unspecified; N18.9 Chronic kidney disease, unspecified; I12.9 Hypertensive chronic kidney disease with stage 1 through stage 4 chronic kidney disease, or unspecified chronic kidney disease; Z88.0 Allergy status to penicillin; D69.6 Thrombocytopenia, unspecified; F10.11 Alcohol abuse, in remission
CPT/HCPCS: 36415; 76705; 80053; 82105; 82728; 83540; 83550; 85014; 85018; 85025; 85027; 85610; 85730; 94640; 94664; 94760; 96365; 96368; 96375; 96376; 99285-25; A9270; C9113; J0696; J2001; J2354; J2704; J7050; J7120

== ENCOUNTER → 2022-06-11 | Outpatient (CLI) | payer OTHER ==
[~2022-06-11] MED LIST changes: +AMLO10 PO; +ATOR40TA PO; +Deltasone 10 mg10 MG PO; +GLIP10 PO; +Indomethacin50 MG PO; +LOSARTAN POTASS25 M2 PO; +MUPIROCIN15 GM; +NADO20 PO; +NICODERM CQ1 EA25 TD; +ONDA4SO PO; +Prednisone10 MG PO
[2022-06-17 06:39] LABS: Stool Occult Bld Immuno 1 Negative (NEGATIVE)
== END | disposition home or self-care (01) ==
LOC: LAB 12:05 → LAB SHORT 12:05
PROVIDERS: Physician Assistant
DX: K92.1 Melena (principal)
CPT/HCPCS: G0328

== ENCOUNTER 2022-06-16 15:00 | Observation (INO) | payer OTHER ==
[~2022-06-16] VITALS: Ht 172.7 cm; Wt 89.0 kg
[~2022-06-16 15:00] MED LIST changes: -NADO20 PO; -NICODERM CQ1 EA25 TD
[2022-06-16 16:27] LABS: Hematocrit 23.8 % (37.0-53.0); Hemoglobin 7.9 g/dL (13.5-17.5); Mean Corpuscular HGB Conc 33.2 g/dL (31.5-36.5); Mean Corpuscular Volume 93 fL (80-100); Mean Platelet Volume 10.4 fL (9.1-12.4); Platelet Count 93 K/mm3 (150-400); RDW Coefficient Variation 17.4 % (11.7-14.2); RDW Standard Deviation 58.9 fL (35.1-46.3); Red Blood Cell Count 2.55 M/mm3 (4.30-5.90); White Blood Cell Count 5.26 K/mm3 (4.00-11.30)
[2022-06-16 17:43] LABS: International Normalized Ratio 1.09; Prothrombin Time Results 11.4 Sec (9.7-11.5)
[2022-06-16] MEDS ORDERED: NICODERM CQ1 EA25 TD ×2 (19:34)
[2022-06-16] MEDS ORDERED: OMEP20ER PO ×2 (19:34)
[2022-06-16] MEDS ORDERED: Ventolin/Prove6.7 GM INH ×2 (19:35)
[2022-06-16] MEDS ORDERED: CHLO25B PO ×2 (19:35)
[2022-06-16] MEDS ORDERED: ONDA4 PO ×2 (19:36)
[2022-06-16 21:33] LABS: Hematocrit 24.6 % (37.0-53.0); Hemoglobin 8.1 g/dL (13.5-17.5)
--- NOTE | 2022-06-16 21:46 | NUR ---
ADMIT NOTE 61 YR OLD MALE ADMITTED TO FLOOR FROM THE ED WITH DX OF UPPER GI BLEED. ALERT AND ORIENTED X 4. IV PROTONIX DRIP INFUSING. SCAN DONE IN ROOM. MD IN ROOM ASSESSING PT. ORIENTED TO CALL LIGHT. CALL LIGHT IN REACH
--- NOTE | 2022-06-17 03:57 | NUR ---
TRAILER STEERER SUMMARY WAS ADMITTED EARLIER IN THE SHIFT WITH DX OF UPPER GI BLEED. VSS. NO REPORTED DARK TARRY STOOL OR HEMOPTYSIS REPORTED. IV PROTONIX DRIP AND SANDOSTATIN INFUSING. NO C/O PAIN VOICED. NOTED OLD ABD SCAR, VOICED HX OF ABD ISSUES. HAS BEEN RESTING QUIETLY WITH EFW INTERRUPTIONS. WAS ON FULL LIQ DIET UNTIL 0300, NOW ON WATER AND ICE CHIPS UNTIL 11 AM. THEN NPO FOR EGD THEREAFTER. CALL LIGHT IN REACH. WILL CONTINUE TO MONITOR
[2022-06-17 05:38] LABS: Hematocrit 23.1 % (37.0-53.0); Hemoglobin 7.7 g/dL (13.5-17.5); Mean Corpuscular HGB 30.6 pg (26.0-34.0); Mean Corpuscular HGB Conc 33.3 g/dL (31.5-36.5); Mean Corpuscular Volume 92 fL (80-100); Mean Platelet Volume 10.7 fL (9.1-12.4); Platelet Count 79 K/mm3 (150-400); RDW Coefficient Variation 17.2 % (11.7-14.2); RDW Standard Deviation 56.5 fL (35.1-46.3); Red Blood Cell Count 2.52 M/mm3 (4.30-5.90); White Blood Cell Count 3.41 K/mm3 (4.00-11.30)
[2022-06-17 06:11] LABS: Bun/Creatinine Ratio 18.5 (12.0-20.0); Calcium, Blood 8.2 mg/dL (8.5-10.1); Creatinine, Blood 1.3 mg/dL (0.60-1.20); Potassium, Blood 3.8 mmol/L (3.5-5.5)
--- NOTE | 2022-06-17 15:46 | NUR ---
Lungs clear T/O to Auscultation. Pre-Op teaching done. Pt verbalizes understanding. PT ON RM AIR. DAUGHTER AT BEDSIDE.
--- NOTE | 2022-06-17 17:23 | NUR ---
Shift Summary A/Ox4, independent in room. Calling for needs appropriately. Denies pain. No bm today. Had EGD this afternoon. Requesting to go smoke, education given RE tobacco free campus. Does have nicotine patch ordered, patient refused saying "they don't work".
--- NOTE | 2022-06-17 17:29 | NUR ---
06/17/22 1729 Ezra Erazo HISTORY, CHART, MEDICATIONS AND ALLERGIES REVIEWED BEFORE START OF PROCEDURE. PATIENT CONFIRMS NPO STATUS AND AGREES WITH SCHEDULED PROCEDURE. 3-LEAD EKG REVIEWED WITH PHYSICIAN PRIOR TO START OF PROCEDURE. MONITOR INTACT WITH CONTINUOUS PULSE OXIMETRY,CAPNOGRAPHY, 3-LEAD EKG, INTERMITTENT BP. SUPPLEMENTAL O2 TO BE TITRATED THROUGHOUT PROCEDURE TO MAINTAIN O2 SATURATION ABOVE 90%. PATIENT DETERMINED TO BE ASA APPROPRIATE FOR PROPOFOL SEDATION PRIOR TO START OF PROCEDURE BY
[2022-06-17 18:47] LABS: Hematocrit 28.3 % (37.0-53.0); Hemoglobin 9.2 g/dL (13.5-17.5)
[2022-06-18 04:55] LABS: Hematocrit 24.9 % (37.0-53.0); Hemoglobin 8.1 g/dL (13.5-17.5); Mean Corpuscular HGB 30.7 pg (26.0-34.0); Mean Corpuscular HGB Conc 32.5 g/dL (31.5-36.5); Mean Corpuscular Volume 94 fL (80-100); Mean Platelet Volume 10.5 fL (9.1-12.4); Platelet Count 83 K/mm3 (150-400); RDW Coefficient Variation 17.1 % (11.7-14.2); RDW Standard Deviation 58.5 fL (35.1-46.3); Red Blood Cell Count 2.64 M/mm3 (4.30-5.90); White Blood Cell Count 3.88 K/mm3 (4.00-11.30)
[2022-06-18 05:10] LABS: Albumin, Blood 3.1 g/dL (3.4-5.0); Anion Gap 4 mmol/L (6-16); Blood Urea Nitrogen 24 mg/dL (8-24); CO2, Blood 24 mmol/L (21-32); Calcium, Blood 8.1 mg/dL (8.5-10.1); Chloride, Blood 111 mmol/L (98-108); Creatinine, Blood 1.26 mg/dL (0.60-1.20); Glomerular Filtration Rate 64 (60-); Glucose, Blood 187 mg/dL (70-99); Phosphorus, Blood 3.3 mg/dL (2.5-4.9); Potassium, Blood 4.4 mmol/L (3.5-5.5); Sodium, Blood 139 mmol/L (136-145)
[2022-06-18] MEDS ORDERED: NADO20 PO ×4 (11:15→11:16)
--- NOTE | 2022-06-18 11:51 | NUR ---
DC HOME WRITTEN & VERBAL DC INSTRUCTIONS GIVEN TO PT, GOOD UNDERSTANDING VERBALIZED BY PT. ALL QUESTIONS & CONCERNS ADDRESSED. NEW SCRIPTS WERE FAXED TO PT'S PREFERRED PHARM, [facility]. 3 PIVS DC'D WITH CATH TIPS INTACT, NO REDNESS OR SWELLING NOTED. PT AMBULATED SELF TO FRIEND'S PV WITH ALL PERSONAL BELONGINGS.
== END 2022-06-18 12:36 | disposition home or self-care (01) ==
LOC: ER 15:00 → ERHOLD 15:01 → MEDS 15:01
PROVIDERS: Internal Medicine; Internal Medicine Gastroenterology; Student in an Organized Health Care Education/Training Program; ADMIT Internal Medicine
PROC: 0DJ08ZZ Inspection of Upper Intestinal Tract, Via Natural or Artificial Opening Endoscopic (ICD-10-PCS; principal; 2022-06-17 16:15)
DX: K74.60 Unspecified cirrhosis of liver (principal); K76.6 Portal hypertension; K31.89 Other diseases of stomach and duodenum; N17.9 Acute kidney failure, unspecified; J44.9 Chronic obstructive pulmonary disease, unspecified; E87.6 Hypokalemia; D69.6 Thrombocytopenia, unspecified; I85.11 Secondary esophageal varices with bleeding
CPT/HCPCS: 36415; 76705; 80048; 80069; 82105; 82272; 82947; 85014; 85018; 85027; 85610; 85730; 86850; 86900; 86901; 96365; 96366; 96367; 96376; 99285-25; A9270; C9113; G0378; J0696; J2354; J2704; J3480; J7030; J7050; J7120

== ENCOUNTER → 2022-08-11 | Outpatient (CLI) | payer OTHER ==
[~2022-08-11] MED LIST changes: +NADO20 PO; +NICODERM CQ1 EA25 TD
== END | disposition home or self-care (01) ==
LOC: LAB SHORT 11:00 → LAB 11:00
DX: L08.9 Local infection of the skin and subcutaneous tissue, unspecified (principal)
CPT/HCPCS: 87070; 87075; 87077; 87147; 87186; 87205